=== PATIENT | female | born 1990 | race Caucasian/White ===

== ENCOUNTER 2024-06-17 14:25 | Emergency (ER) | payer MEDICAID ==
[~2024-06-17] VITALS: Ht 154.9 cm; Wt 50.0 kg
[2024-06-17 14:37] VITALS: O2SAT 98
[2024-06-17 14:40] VITALS: BP 115/64; PULSE 94; RESP 16; TEMP 98.9; O2SAT 100
[2024-06-17 15:02] LABS: CLARITY URINE CLEAR (CLEAR); COLOR URINE YELLOW (YELLOW); GLUCOSE URINE NEGATIVE (NEGATIVE); KETONES URINE NEGATIVE (NEGATIVE); LEUKOCYTE ESTERASE URINE TRACE (NEGATIVE); NITRITE URINE NEGATIVE (NEGATIVE); OCCULT BLOOD URINE NEGATIVE (NEGATIVE); PH URINE 7.5 (4.5-8.0); PROTEIN URINE NEGATIVE (NEGATIVE); SPECIFIC GRAVITY URINE 1.011 (1.005-1.030); UROBILINOGEN URINE 0.2 E.U./dL (0.2-1.0)
[2024-06-17 15:18] LABS: SQUAMOUS EPITHELIAL CELL URINE 1+ /lpf (RARE/1+)
[2024-06-17 15:19] LABS: BACTERIA URINE TRACE; MUCUS URINE TRACE /lpf (< = 2+)
[2024-06-17 15:20] LABS: WBC URINE 0-2 /hpf (0-2)
[2024-06-17 15:21] LABS: RBC URINE NONE SEEN /hpf (0-2)
[2024-06-17 16:05] LABS: BASOPHILS % 0.2 % (0.0-2.0); EOSINOPHILS % 3.2 % (0.0-5.0); HEMATOCRIT. 37.8 % (36.0-48.0); HEMOGLOBIN. 12.8 g/dL (12.0-16.0); LYMPHOCYTES % 22.7 % (20.0-50.0); MEAN CORPUSCULAR HEMOGLOBIN 31.6 pg (28.0-32.0); MEAN CORPUSCULAR HGB CONC 33.9 g/dL (31.0-37.0); MEAN CORPUSCULAR VOLUME 93.2 fL (81.0-99.0); MEAN PLATELET VOLUME 7.9 fl (7.4-10.4); MONOCYTES % 8.2 % (2.0-8.0); NEUTROPHILS % 65.7 % (40.0-76.0); PLATELET 309 x1000/uL (130-400); RED BLOOD CELL COUNT 4.05 mill/uL (4.2-5.4); RED CELL DISTRIBUTION WIDTH 12.6 % (11.6-14.6); WHITE BLOOD COUNT 7.3 x1000/uL (4.5-11.0)
[2024-06-17 16:08] LABS: CARBON DIOXIDE 22 mEq/L (21-32); CHLORIDE 105 mEq/L (98-107); POTASSIUM 4.2 mEq/L (3.5-5.1); SODIUM 138 mEq/L (136-145)
[2024-06-17 16:09] LABS: CALCIUM 9.5 mg/dL (8.7-10.4)
[2024-06-17 16:13] LABS: CREATININE 0.7 mg/dL (0.6-1.0)
[2024-06-17 16:14] LABS: GLUCOSE 98 mg/dL (70-105); UREA NITROGEN BLOOD 8 mg/dL (9-23)
[2024-06-17 16:15] LABS: ALANINE AMINOTRANSFERASE 7 IU/L (10-49); ALBUMIN 4.3 g/dL (3.2-4.8); ASPARTATE AMINOTRANSFERASE 13 IU/L (<34)
[2024-06-17 16:16] LABS: BILIRUBIN DIRECT 0.3 mg/dL (<=3.0); BILIRUBIN TOTAL 0.8 mg/dL (0.1-1.0)
[2024-06-17 16:24] LABS: HCG SCREEN POSITIVE
[2024-06-17 16:28] LABS: B-HCG QUANTITATIVE 58075 mIU/mL (<3)
[2024-06-17] MEDS ORDERED: ONDA-239 PO (19:14)
== END 2024-06-17 19:34 | disposition home or self-care (01) ==
LOC: ER 15:08
DX: O26.899 Other specified pregnancy related conditions, unspecified trimester (principal); J06.9 Acute upper respiratory infection, unspecified; Z98.890 Other specified postprocedural states
CPT/HCPCS: 36415; 80048; 80076; 81003; 81025; 84702; 84703; 85025; 99283

== ENCOUNTER 2024-07-20 11:33 | Emergency (ER) | payer MEDICAID ==
[~2024-07-20] VITALS: Ht 157.5 cm; Wt 19.0 kg
[~2024-07-20 11:33] MED LIST: ONDA-239 PO
[2024-07-20 11:43] VITALS: O2SAT 100
[2024-07-20 12:36] LABS: BASOPHILS % 0.2 % (0.0-2.0); EOSINOPHILS % 0.7 % (0.0-5.0); HEMATOCRIT. 37.9 % (36.0-48.0); HEMOGLOBIN. 12.9 g/dL (12.0-16.0); LYMPHOCYTES % 24.2 % (20.0-50.0); MEAN CORPUSCULAR HEMOGLOBIN 31.9 pg (28.0-32.0); MEAN CORPUSCULAR VOLUME 93.8 fL (81.0-99.0); MEAN PLATELET VOLUME 8.4 fl (7.4-10.4); MONOCYTES % 5.7 % (2.0-8.0); NEUTROPHILS % 69.2 % (40.0-76.0); PLATELET 288 x1000/uL (130-400); RED BLOOD CELL COUNT 4.04 mill/uL (4.2-5.4); RED CELL DISTRIBUTION WIDTH 12.8 % (11.6-14.6); WHITE BLOOD COUNT 8.2 x1000/uL (4.5-11.0)
[2024-07-20 12:41] LABS: CARBON DIOXIDE 25 mEq/L (21-32); CHLORIDE 107 mEq/L (98-107); POTASSIUM 4.2 mEq/L (3.5-5.1); SODIUM 141 mEq/L (136-145)
[2024-07-20 12:42] LABS: CALCIUM 9.7 mg/dL (8.7-10.4)
[2024-07-20 12:46] LABS: CREATININE 0.6 mg/dL (0.6-1.0)
[2024-07-20 12:47] LABS: GLUCOSE 97 mg/dL (70-105); UREA NITROGEN BLOOD 8 mg/dL (9-23)
[2024-07-20 14:01] LABS: B-HCG QUANTITATIVE 4953 mIU/mL (<3)
[2024-07-20] MEDS ORDERED: OXYTOCIN 30 UNITS/500ML NS 500 ML IV ONE (14:30)
[2024-07-20 14:58] LABS: CLARITY URINE CLEAR (CLEAR); COLOR URINE YELLOW (YELLOW); GLUCOSE URINE NEGATIVE (NEGATIVE); KETONES URINE NEGATIVE (NEGATIVE); LEUKOCYTE ESTERASE URINE TRACE (NEGATIVE); NITRITE URINE NEGATIVE (NEGATIVE); OCCULT BLOOD URINE 3+ (NEGATIVE); PH URINE 7.5 (4.5-8.0); PROTEIN URINE NEGATIVE (NEGATIVE); SPECIFIC GRAVITY URINE 1.015 (1.005-1.030); UROBILINOGEN URINE 0.2 E.U./dL (0.2-1.0)
[2024-07-20 15:14] LABS: BACTERIA URINE 1+; RBC URINE 0-2 /hpf (0-2); SQUAMOUS EPITHELIAL CELL URINE 2+ /lpf (RARE/1+); YEAST URINE NONE SEEN
[2024-07-20] MEDS: MISOPROSTOL 200MCG TABLET PO ONE (15:29)
[2024-07-20] MEDS ORDERED: SODIUM CHLORIDE 0.9% IV SCH (15:30)
[2024-07-20] MEDS ORDERED: OXYTOCIN IV SCH (15:30)
[2024-07-20] MEDS: OXYTOCIN 30 UNITS/500ML NS 500 ML IV ONE (15:35)
[2024-07-20] MEDS: ONDANSETRON HCL 4MG/2ML INJ IV ONE (15:51)
[2024-07-20] MEDS: KETOROLAC 30MG/ML VIAL IV ONE (15:51)
[2024-07-20] MEDS: OXYCODONE HCL/ACETAMINOPHEN 5/325MG TABLET PO ONE (15:58)
[2024-07-20 19:22] LABS: HEMATOCRIT 34.7 % (36.0-48.0); HEMOGLOBIN 11.8 g/dL (12.0-16.0)
[2024-07-20] MEDS: MORPHINE SULFATE 2 MG/ML INJ (NOT FOR IM USE) IV ONE (20:17)
[2024-07-20 20:25] VITALS: BP 106/64; PULSE 73; RESP 16; TEMP 36.6; O2SAT 100
== END 2024-07-20 20:30 | disposition home or self-care (01) ==
LOC: ER 11:33
DX: O03.9 Complete or unspecified spontaneous abortion without complication (principal); Z3A.10 10 weeks gestation of pregnancy
CPT/HCPCS: 99291; 96365; 76801; 96375; 80048; 81003; 84702; 85025; 86850; 86900; 86901; 36415; 76817; 85018; 85014; J1885; J2405; J7050; J2590